=== PATIENT | male | born 1990 | race Caucasian/White ===

== ENCOUNTER 2020-11-23 11:34 | Emergency (ER) | payer MEDICAID ==
[2020-11-23] MEDS ORDERED: Glucagon,Human Recombinant 1 MG Vial IM PRN (12:56)
[2020-11-23] MEDS ORDERED: 50% Dextrose in Water 50 ML Syringe IVPUSH PRN (12:56)
--- NOTE | 2020-11-23 13:10 | EDM.PDOC ---
ED HPI GENERAL MEDICAL PROBLEM - General Chief Complaint: General Stated Complaint: BLOOD SUGARS ARE HIGH Time Seen by Provider: 11/23/20 12:20 Source of Information: Reports: Patient, Family History Limitations: Reports: No Limitations - History of Present Illness INITIAL COMMENTS - FREE TEXT/NARRATIVE: 30-year-old male appears in the area on vacation was a type I diabetic, was running low on supplies prior to leaving for vacation and tried to get his prescriptions but they did not arrive in time. Now is feeling nauseous, dizzy, and he can tell his glucose is high. No vomiting, no diarrhea, no shortness of breath. He is worried that he is entering DKA. Onset: Gradual Associated Symptoms: Reports: Loss of Appetite, Malaise - Related Data Allergies Allergy/AdvReac Type Severity Reaction Status Date / Time tramadol Allergy Other Verified 11/23/20 12:21 Home Meds: Home Meds Insulin Lispro [HumaLOG] 1 dose SQ ASDIRECTED 11/23/20 [History] Past Medical History HEENT History: Reports: Impaired Vision Cardiovascular History: Reports: Other (See Below) Neurological History: Reports: Concussion, Seizure, Other (See Below) Other Neuro History: diabetic induced seizure Psychiatric History: Reports: Anxiety, Depression Endocrine/Metabolic History: Reports: Diabetes, Type I, Vitamin D Deficiency - Past Surgical History Head Surgeries/Procedures: Reports: None HEENT Surgical History: Reports: None Cardiovascular Surgical History: Reports: None Endocrine Surgical History: Reports: None Neurological Surgical History: Reports: None Dermatological Surgical History: Reports: None Social & Family History - Tobacco Use Tobacco Use Status *Q: Never Tobacco User Second Hand Smoke Exposure: No - Caffeine Use Caffeine Use: Reports: Coffee - Recreational Drug Use Recreational Drug Use: No ED ROS GENERAL - Review of Systems Review Of Systems: See Below Constitutional: Reports: Malaise. Denies: Fever, Chills HEENT: Reports: No Symptoms Respiratory: Denies: Shortness of Breath Cardiovascular: Denies: Chest Pain GI/Abdominal: Reports: Nausea. Denies: Vomiting Musculoskeletal: Reports: Other (Generalized body aches) Neurological: Reports: Dizziness. Denies: Headache ED EXAM, GENERAL - Physical Exam Exam: See Below Exam Limited By: No Limitations General Appearance: Alert, No Apparent Distress Eye Exam: Bilateral Eye: Normal Inspection Respiratory/Chest: No Respiratory Distress, Lungs Clear Cardiovascular: Regular Rate, Rhythm. No: Tachycardia Extremities: Normal Inspection Neurological: Alert, Oriented, No Motor/Sensory Deficits Psychiatric: Normal Affect, Normal Mood Skin Exam: Warm, Dry Course - Vital Signs Last Recorded V/S: Last Vital Signs Temp 98 F 11/23/20 12:28 Pulse 61 11/23/20 12:28 Resp 14 11/23/20 12:28 BP 144/85 H 11/23/20 12:28 Pulse Ox 100 11/23/20 12:28 - Orders/Labs/Meds Labs: Laboratory Tests 11/23/20 11/23/20 11/23/20 Range/Units 12:46 13:05 13:05 WBC 5.0 (4.5-11.0) K/uL RBC 5.49 (4.30-5.90) M/uL Hgb 15.7 H (12.0-15.0) g/dL Hct 43.9 (40.0-54.0) % MCV 80 (80-98) fL MCH 29 (27-31) pg MCHC 36 (32-36) % Plt Count 81 L (150-400) K/uL Neut % (Auto) 52.1 (36-66) % Lymph % (Auto) 27.2 (24-44) % [place] % (Auto) 17.3 H (2-6) % Eos % (Auto) 2.2 (2-4) % Baso % (Auto) 1.2 H (0-1) % Sodium 133 L (140-148) mmol/L Potassium 5.3 H (3.6-5.2) mmol/L Chloride 95 L (100-108) mmol/L Carbon Dioxide 27 (21-32) mmol/L Anion Gap 16.3 H (5.0-14.0) mmol/L BUN 15 (7-18) mg/dL Creatinine 1.0 (0.8-1.3) mg/dL Est Cr Clr Drug Dosing 95.67 mL/min Estimated GFR (MDRD) > 60 (>60) Glucose 510 H* (74-106) mg/dL POC Glucose 481 H* (74-106) mg/dL Calcium 8.8 (8.5-10.1) mg/dL Ketones (NEGATIVE) 11/23/20 Range/Units 13:05 WBC (4.5-11.0) K/uL RBC (4.30-5.90) M/uL Hgb (12.0-15.0) g/dL Hct (40.0-54.0) % MCV (80-98) fL MCH (27-31) pg MCHC (32-36) % Plt Count (150-400) K/uL Neut % (Auto) (36-66) % Lymph % (Auto) (24-44) % [place] % (Auto) (2-6) % Eos % (Auto) (2-4) % Baso % (Auto) (0-1) % Sodium (140-148) mmol/L Potassium (3.6-5.2) mmol/L Chloride (100-108) mmol/L Carbon Dioxide (21-32) mmol/L Anion Gap (5.0-14.0) mmol/L BUN (7-18) mg/dL Creatinine (0.8-1.3) mg/dL Est Cr Clr Drug Dosing mL/min Estimated GFR (MDRD) (>60) Glucose (74-106) mg/dL POC Glucose (74-106) mg/dL Calcium (8.5-10.1) mg/dL Ketones Negative (NEGATIVE) Meds: Medications Discontinued Medications Generic Name Dose Route Start Last Admin Trade Name Freq PRN Reason Stop Dose Admin Dextrose/Water 50 ml 11/23/20 12:56 50% Dextrose In Water 50 Ml Syringe IVPUSH ASDIRECTED PRN Hypoglycemia Glucagon 1 mg 11/23/20 12:56 Glucagon,Human Recombinant 1 Mg Vial IM ASDIRECTED PRN Hypoglycemia Sodium Chloride 1,000 mls @ 999 mls/hr 11/23/20 13:00 11/23/20 13:13 Normal Saline IV 999 mls/hr ASDIRECTED JIL Administration Insulin Human Regular 16 unit 11/23/20 12:56 11/23/20 13:13 Insulin Regular, Human 100 Units/Ml 3 Ml Vial IVPUSH 11/23/20 12:57 16 units ONETIME ONE Administration - Re-Assessments/Exams Free Text/Narrative Re-Assessment/Exam: 11/23/20 18:38 Explained to the patient he did not appear to be in DKA but his spot glucose was 480. An IV was started, CBC and BMP were obtained and the patient was given 12 units of regular insulin IV. Serum ketones were also obtained. Serum ketones were negative, patient did feel better after the IV insulin and fluids. Prescription was given for Lantus insulin he is can start taking 20 units a day and continue with Humalog. Departure - Departure Time of Disposition: 14:38 Disposition: Home, Self-Care 01 Clinical Impression: Hyperglycemia - Discharge Information Instructions: Hyperglycemia, [id number] Referrals: PCP,None [Primary Care Provider] - Forms: ED Department Discharge Care Plan Goals: Use at least 20 units of Lantus daily for the next 5 days, then adjust as necessary. Continue your Humalog as needed. Return if worsening or concerns. Sepsis Event Note (ED) - Evaluation Sepsis Screening Result: No Definite Risk - Focused Exam Vital Signs: Vital Signs Temp Pulse Resp BP Pulse Ox 11/23/20 12:28 98 F 61 14 144/85 H 100 11/23/20 12:01 98 F 61 14 144/85 H 100
[2020-11-23] MEDS: Sodium Chloride 0.9% 1,000 ML IV SCH (13:13)
[2020-11-23] MEDS: Insulin Regular, Human 100 Units/ML 3 ML Vial IVPUSH ONE (13:13)
== END 2020-11-23 14:38 | disposition home or self-care (01) ==
LOC: JP.ED 11:34
DX: E10.65 Type 1 diabetes mellitus with hyperglycemia (principal); Z88.5 Allergy status to narcotic agent; Z79.899 Other long term (current) drug therapy
CPT/HCPCS: 36415; 80048; 82009; 82947; 85025; 99284; J7030; J1815-GY